=== PATIENT | male | born 1980 | race Caucasian/White ===

== ENCOUNTER 2024-09-21 19:18 | Emergency (ER) | payer OTHER, BC ==
[~2024-09-21] VITALS: Ht 180.3 cm; Wt 76.0 kg
[2024-09-21] MEDS ORDERED: DIPHTH,PERTUSS(ACELL),TET VAC 0.5 ML SYRINGE IM ONE (19:45)
[2024-09-21] MEDS ORDERED: LIDOCAINE/RACEPINEP/TETRACAINE 3 ML SYR TOP ONE (20:45)
[2024-09-21 21:30] VITALS: BP 141/86
== END 2024-09-21 21:30 | disposition home or self-care (01) ==
LOC: ED 19:18
DX: S91.312A Laceration without foreign body, left foot, initial encounter (principal); W22.8XXA Striking against or struck by other objects, initial encounter
CPT/HCPCS: 12001; 90471; 90715; 99282-25